=== PATIENT | male | born 1970 | race Caucasian/White ===

== ENCOUNTER 2022-04-05 13:04 | Emergency (ER) | payer SELFPAY ==
[~2022-04-05] VITALS: Ht 180.3 cm; Wt 81.6 kg
[2022-04-05] MEDS ORDERED: CEPHALEXIN500 M1 PO (16:11)
[2022-04-05] MEDS ORDERED: HYDROCODON-ACE1 EA10 PO (16:11)
== END 2022-04-05 16:35 | disposition home or self-care (01) ==
LOC: ED 13:04
DX: S61.310A Laceration without foreign body of right index finger with damage to nail, initial encounter (principal); Z23 Encounter for immunization; W23.0XXA Caught, crushed, jammed, or pinched between moving objects, initial encounter
CPT/HCPCS: 11760; 26755; 73140; 90471; 90715; 99283-25